=== PATIENT | female | born 1965 | race Caucasian/White ===

== ENCOUNTER 2025-08-12 12:20 | Observation (INO) ==
[2025-08-12] MEDS: DUONEB NEB ONE (13:20)
[2025-08-12 13:27] LABS: IMMATURE GRANULOCYTE # (AUTO) 0.0 (0.0-1.0); IMMATURE GRANULOCYTE % (AUTO) 0.4 % (0.0-5.0); RDW COEFFICIENT OF VARIATION 13.2 % (11.6-14.8)
[2025-08-12 13:40] LABS: MOLECULAR FLU A NEGATIVE BY NAAT (NEGATIVE); MOLECULAR FLU B NEGATIVE BY NAAT (NEGATIVE); SARS COV-2 RNA RAPID NAAT NEGATIVE (NEGATIVE)
[2025-08-12 13:41] LABS: CREATININE 0.52 mg/dL (0.60-1.30)
--- NOTE | 2025-08-12 13:45 | DI ---
EXAM: CHEST FRONTAL AND LATERAL VIEWS HISTORY: Chest pain, dyspnea, history of congestive heart failure and chronic obstructive pulmonary disease COMPARISON: 07/24/2025 IMPRESSION: Cardiomegaly atherosclerosis are again noted. No acute infiltrates are seen. No vascular congestion. There is no consolidation, visible pleural fluid or pneumothorax. Bones reveal no acute abnormality. Spinal stimulator noted in the posterior to the lower thoracic spine.
[2025-08-12] MEDS: OMNIPAQUE 350 MG/ML 100ML IVP ONE (13:58)
--- NOTE | 2025-08-12 14:53 | CT ---
EXAM: CHEST CTA WITH CONTRAST (PULMONARY ARTERY) HISTORY: Chest pain and shortness of breath. TECHNIQUE: CTA acquisition of the chest from the thoracic inlet to the upper abdomen following IV contrast administration timed to filling of the pulmonary artery. IV Contrast: 100 mL of Omnipaque 350 administered. 3D/MIP/VR images were utilized. CT Dose Reduction Techniques Employed: Yes. COMPARISON: None. FINDINGS: Pulmonary Embolism: - Diagnostic quality: Adequate. - Central (Main/Lobar/Interlobar): No embolus. - Peripheral (Segmental/Subsegmental): No embolus. - Right ventricle/Left ventricle ratio: Normal. Lines, Tubes, Devices: None. Lung Parenchyma and Airways: Central airways are patent without endobronchial lesion. No focal consolidation or interstitial disease. No suspicious pulmonary nodule. Pleural Space: No pleural effusion or thickening. No pneumothorax. Thoracic Inlet, Mediastinum, and Juliann: Thyroid gland is normal. No lymphadenopathy. Heart, Vessels, and Pericardium: The thoracic aorta is not dilated. Mild coronary and aortic calcifications. The heart chambers are mildly enlarged. There is no pericardial effusion or thickening. Bones and Soft Tissues: There is no fracture or lytic lesion. Chest wall soft tissues are unremarkable. Upper Abdomen: The visualized portions of the liver, spleen, and adrenals are normal. IMPRESSION: 1. No evidence of pulmonary embolism. 2. No acute thoracic abnormality. All CT scans are performed using dose optimization techniques as appropriate to the performed exam and include at least one of the following: Automated exposure control, adjustment of the mA and/or kV according to size, and the use of iterative reconstruction technique.
[2025-08-12] MEDS: PERCOCET 10-325 PO ONE (16:40)
[2025-08-12] MEDS: LEVAQUIN 750 MG/150 ML D5W 750 MG/150 ML BAG IV SCH (16:53)
[2025-08-12 17:26] VITALS: BMI 33.2
[2025-08-12] MEDS: DUONEB NEB SCH (18:05)
[2025-08-12] MEDS ORDERED: FLEXERIL PO PRN (18:06)
[2025-08-12] MEDS ORDERED: VENTOLIN HFA IH PRN (18:06)
[2025-08-12] MEDS ORDERED: NON-FORMULARY MEDICATION (Fluticasone-Umeclidin-Vilanter [Trelegy Ellipta] 100-62.5-25 mcg IH SCH (18:15)
[2025-08-12] MEDS: NICODERM 21 MG TD SCH (18:57)
[2025-08-12] MEDS: PROTONIX PO SCH (18:59)
[2025-08-12] MEDS: XARELTO PO SCH (18:59)
[2025-08-12] MEDS: PLAVIX PO SCH (18:59)
[2025-08-12] MEDS: ZESTRIL PO SCH (18:59)
[2025-08-12] MEDS: CYMBALTA PO SCH (19:00)
[2025-08-12] MEDS: LANTUS SUBCUT SCH (21:49)
[2025-08-12] MEDS: TRILEPTAL PO SCH (21:50)
[2025-08-12] MEDS: LYRICA PO SCH (21:50)
[2025-08-12] MEDS: K-DUR PO ONE (21:51)
[2025-08-12] MEDS: LIPITOR PO SCH (21:51)
[2025-08-12] MEDS: FLORASTOR PO SCH (21:51)
[2025-08-12] MEDS: HUMULIN R (10ML) SUBCUT ONE (21:53)
[2025-08-12] MEDS: PERCOCET 10-325 PO PRN (23:20)
[2025-08-12] MEDS: HUMULIN R (10ML) SUBCUT SCH (23:59)
--- NOTE | 2025-08-13 00:45 | ED.PDOC ---
General [facility] ED Provider: Dr. BERTO MUÑOZ MD Chief Complaint: Chest Pain Stated Complaint: Patient is a 60-year-old female who is presenting to the emergency department for chest discomfort. Patient states that for the last 3 days she has been having a heaviness over her chest that radiates to the left aspect of it. She endorses associated dyspnea and orthopnea with this as well. She notes that she is on home oxygen secondary to her COPD and has been using her home nebulizer with albuterol, however this failed to provide much improvement. She notes that she also has not been taking her Lasix given her recent toe amputation procedure she had several days ago. Also notes that she has a history of pulmonary embolism and was on prophylactic anticoagulation, however, this was also stopped her her recent surgical procedure. Denies any fevers or chills. Denies any productive cough. She does endorse some pleuritic pain as well. Time Seen by Provider: 08/12/25 12:40 Mode of Arrival: Walk-In Information Source: Patient Exam Limitations: No limitations Primary Care Provider: SLIM SNOWDEN PA-C Nursing and Triage Documentation Reviewed and Agree: Yes Opioid Naive vs. Tolerant Does Patient Take Opioids?: Yes Is Patient Opioid Naive?: No What is Opioid Naive?: *Opioid Naive implies the patient is not already taking opioids or not chronically receiving opioids on a daily basis. *PRN dosing is not "usually" associated with tolerance. *Patients are at higher risk of over-sedation and aspiration. What is Opioid Tolerant?: *Opioid Tolerance implies less than the expected response to an opioid. *Acquired tolerance is defined by the patient taking 60mg of oral morphine daily (or equianalgesic dose of another opioid) for 1 week or more. *Often associated with chronic pain. *May take more than usual dose to achieve desired pain control. 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 - Spondylosis, unspecified (ICD-10) Legally blind H54.8 - Legal blindness, as defined in [place] (ICD-10) Family History Other No known health problems Social History (Updated 08/12/25 @ 18:47 by SABINO BERG RN) Smoking and tobacco status: Current every day smoker Tobacco type: cigarettes Tobacco: How many years used: 40 Quit status: not considering quitting Alcohol intake: never Substance use type: does not use Special terrell needs: No Adopted: Yes Financial difficulty paying for basics: not very hard Seatbelt use: always Surgical History [place] teeth extracted K08.409 - Partial loss of teeth, unspecified cause, unspecified class (ICD- 10) History of cholecystectomy Z90.49 - Acquired absence of other specified parts of digestive tract (ICD- 10) History of appendectomy Z90.49 - Acquired absence of other specified parts of digestive tract (ICD- 10) H/O: hysterectomy Z90.710 - Acquired absence of both cervix and uterus (ICD-10) H/O colonoscopy Z98.890 - Other specified postprocedural states (ICD-10) History of lumbar surgery Z98.890 - Other specified postprocedural states (ICD-10) Status post trigger finger release Z98.890 - Other specified postprocedural states (ICD-10) Status post insertion of spinal cord stimulator Z96.89 - Presence of other specified functional implants (ICD-10) History of cardiac catheterization Z98.890 - Other specified postprocedural states (ICD-10) History of bunionectomy Z98.890 - Other specified postprocedural states (ICD-10) Toe amputee Z89.429 - Acquired absence of other toe(s), unspecified side (ICD-10) Spinal cord stimulator status Z96.89 - Presence of other specified functional implants (ICD-10) Amputation of toe of left foot left second toe on 03/15/[address] Santamaria S98.132A - Complete traumatic amputation of one left lesser toe, initial encounter (ICD-10) Female Reproductive History Menstrual Hx Hysterectomy: Yes Hx Tubal Ligation: No Physical Exam Physical Exam Appearance: Reports No pain distress Ill-appearing: None Pain Distress: None Eyes: Reports JAKE, EOMI and Conjunctiva clear Neck: Supple Respiratory: Reports Airway patent, Breath sounds equal, Wheezes and Other (No increased work of breathing.); Denies Crackles or Rhonchi Cardiovascular: Reports RRR and Pulses normal (2+ radial and DP pulses bilaterally.) GI/: Reports Soft and Nontender Musculoskeletal: Reports Normal strength Skin: Reports Warm, Dry and Other (Inspection of the postoperative site of the right foot where she had her 1st and 2nd digits recently amputated 2 days ago shows sutures intact with no findings concerning for infectious complication.) Neurological: Reports Sensation intact Interpretation EKG Interpretation EKG Interpretation By: ED Physician Time of EKG #1: 12:37 Rate: Normal Rhythm: Sinus Ectopy: PVCs [place]: NL ST Segment: Normal Interpretation: Sinus rhythm with FIs concerning for ACS or right heart strain. Radiology Interpretation Radiology Interpretation By: ED Physician Radiology Results: Negative Exam Interpreted: CXR Xray Comments: Negative for any focal consolidation. Physician Progress Note Physician Progress Note: Patient is a 60-year-old female is presenting to the emergency department for chest discomfort as well as dyspnea of 3-day duration. Differential diagnosis initially with COPD exacerbation versus heart failure exacerbation versus CT versus pulmonary embolism versus pneumonia. We did initiate workup with chest plain film imaging that was interpreted by me as not showing any evidence of an acute cardiopulmonary issue such as pneumonia, pneumothorax, or pulmonary edema. I did escalate imaging to CT PE study given that the patient did have an elevated D-dimer as well as multiple risk factors for developing pulmonary embolism including recent surgery as well as not taking her anticoagulation recently due to said surgery. This imaging was interpreted by the radiologist as showing no findings that would be concerning for pulmonary embolism. CBC did not have a leukocytosis that would indicate underlying infection. Also no signs of anemia that would explain her dyspnea. No significant electrolyte abnormalities aside from a very mild hypokalemia. The brain natruretic peptide was elevated at 2300, however, is unclear if this is insurance account representative of any true heart failure exacerbation as her levels in the past have been 3000. Given her orthopnea I do believe it is possible that the patient is having mild heart failure exacerbation currently. Should be noted the patient's troponin was well within normal limits and given that her symptoms began 3 days ago a repeat was not indicated. ECG also did not have any findings to be concerning for ACS. Into this there was no concern for myocardial infarction at this time. Patient did receive a nebulized breathing treatment and reports some improvement of her symptoms. Given her significant wheezing on examination is certainly possible that her dyspnea and chest discomfort is secondary to a COPD exacerbation. I did refrain from initiating treatment with steroids given that she had a recent operation of the lower extremities and is diabetic. I felt that the steroids would increase her risk of infection. Patient was admitted to the medical floor for treatment of COPD exacerbation and possible heart failure exacerbation. Of note, the postsurgical site of the right foot appear to be healing well and did not have any findings of be concerning for a infectious complication. Course Course 08/12/25 13:19 08/12/25 13:19 Orders, Labs, Meds: Lab Review 08/12/25 08/12/25 13:19 13:23 WBC 9.96 RBC 4.75 Hgb 13.7 Hct 42.6 MCV 89.7 MCH 28.8 MCHC 32.2 RDW Coeff of Christelle 13.2 Plt Count 204 Immature Gran % (Auto) 0.4 Neut % (Auto) 61.0 Lymph % (Auto) 31.9 Elbert % (Auto) 5.4 Eos % (Auto) 1.1 Baso % (Auto) 0.2 Neut # (Auto) 6.1 Lymph # (Auto) 3.2 Elbert # (Auto) 0.5 Eos # (Auto) 0.1 Baso # (Auto) 0.0 Immature Gran # (Auto) 0.0 Sodium 136.0 Potassium 3.15 L Chloride 99.7 Carbon Dioxide 32.1 H Anion Gap 7.35 BUN 12.6 Creatinine 0.52 L Estimated GFR (MDRD) 120.00 BUN/Creatinine Ratio 24.23 Glucose 288.1 H Calcium 9.13 Total Bilirubin 0.53 AST 21.8 ALT 16.0 Alkaline Phosphatase 120.5 Troponin I < 0.012 NT-Pro-B Natriuret Pep 2330 H Total Protein 7.02 Albumin 4.17 Globulin 2.85 Albumin/Globulin Ratio 1.46 D-Dimer 929.42 H Influ A Molecular Assay Negative by naat Influ B Molecular Assay Negative by naat SARS CoV-2 RNA Rapid CEASAR Negative Orders Category Date Time Status PLACE PATIENT OBSERVATION .TO [facility] (MONITORED BED ADMISSION 08/12/25 15:37 Active ) EKG-(ED & IP/OBS ONLY) Stat CARDIO 08/12/25 15:16 Completed NEBULIZER TREATMENT Routine CARDIO 08/12/25 15:55 Active INTAKE & OUTPUT Q8HR CARE 08/12/25 15:37 Active IP: INSERT SALINE LOCK ONCE CARE 08/12/25 15:37 Active NPO REMINDER: IMAGING ONCE CARE 08/12/25 13:41 Completed TELEMETRY MONITORING TELE CARE 08/12/25 15:37 Active VITAL SIGNS Q8HR CARE 08/12/25 15:37 Active ED APPLY O2 .ONCE EMERGENCY 08/12/25 13:00 Active ED MOVIE STAR APPLIED .ONCE EMERGENCY 08/12/25 13:00 Active CBC W/ AUTO DIFF Stat LAB 08/12/25 13:19 Completed COMPREHENSIVE METABOLIC PANEL Stat LAB 08/12/25 13:19 Completed D-DIMER Stat LAB 08/12/25 13:19 Completed FLU A/B MOLECULAR Stat LAB 08/12/25 13:23 Completed NT-PROBNP(ED) Stat LAB 08/12/25 13:19 Completed SARS COV-2 RNA RAPID CEASAR Stat LAB 08/12/25 13:23 Completed SPUTUM CULTURE Routine LAB 08/12/25 15:55 Received TROPONIN I Stat LAB 08/12/25 13:19 Completed Iohexol [Omnipaque 350 mg/ml 100Ml] Meds 08/12/25 13:57 Discontinued 100 ml IVP ONCE ONE Ipratropium/Albuterol Neb [Duoneb] Meds 08/12/25 13:00 Discontinued 3 ml NEB ONCE ONE Ipratropium/Albuterol Neb [Duoneb] Meds 08/12/25 18:00 Active 3 ml NEB RTQ4H Levofloxacin/D5w [Levaquin 750 mg/150 ml D5w] Meds 08/12/25 17:00 Active 750 mg in 150 ml IV DAILY Saccharomyces Boulardii [Florastor] Meds 08/12/25 21:00 Active 250 mg PO BID RESUSCITATION STATUS Routine OTHERS 08/12/25 15:37 Ordered CHEST, 2 VIEWS PA & LAT Stat RADS 08/12/25 13:00 Completed CTA CHEST PE PROTOCOL Stat RADS 08/12/25 13:40 Completed Medications Generic Name Dose Route Start Last Admin Trade Name Freq PRN Reason Stop Dose Admin Albuterol Sulfate 2 puff 08/12/25 18:06 Albuterol Sulfate 8 Gm Inhaler IH Q4-6H PRN Wheezing Albuterol/Ipratropium 3 ml 08/12/25 18:00 08/12/25 21:00 Ipratropium/Albuterol Vial.Neb NEB 3 ml RTQ4H REGULO Administration Atorvastatin Calcium 80 mg 08/12/25 21:00 08/12/25 21:51 Atorvastatin Calcium 20 Mg Tablet PO 80 mg BEDTIME REGULO Administration Budesonide/Formoterol Fumarate 2 puff 08/13/25 09:00 Budesonide/Formoterol Fumarate 160/4.5 Mcg Inhaler IH BID REGULO Clopidogrel Bisulfate 75 mg 08/12/25 18:30 08/12/25 18:59 Clopidogrel Bisulfate 75 Mg Tablet PO 75 mg DAILY REGULO Administration Cyclobenzaprine HCl 5 mg 08/12/25 18:06 Cyclobenzaprine Hcl 10 Mg Tablet PO BID PRN Spasms Duloxetine HCl 60 mg 08/12/25 18:30 08/12/25 19:00 Duloxetine Hcl 30 Mg Capsule. PO 60 mg DAILY REGULO Administration Furosemide 20 mg 08/13/25 09:00 Furosemide 20 Mg Tablet PO DAILY REGULO Levofloxacin/Dextrose 750 mg in 150 mls @ 100 mls/hr 08/12/25 17:00 08/12/25 16:53 Levaquin 750 Mg/150 Ml D5w IV 08/15/25 16:59 100 mls/hr DAILY REGULO Administration Insulin Glargine 30 unit 08/12/25 21:00 08/12/25 21:49 Insulin Glargine,Hum.Rec.Anlog 100 Units/Ml SUBCUT 30 unit BEDTIME REGULO Administration Insulin Human Regular 10 unit 08/13/25 07:30 Insulin Regular, Human 100 Unit/Ml (10ml) Vial SUBCUT TIDWM2 REGULO Lisinopril 10 mg 08/12/25 18:30 08/12/25 18:59 Lisinopril 10 Mg Tablet PO 10 mg DAILY REGULO Administration Nicotine 1 patch 08/12/25 18:20 08/12/25 18:57 Nicotine 21 Mg Patch.Td24 TD 1 patch DAILY REGULO Administration Oxcarbazepine 300 mg 08/12/25 21:00 08/12/25 21:50 Oxcarbazepine 150 Mg Tablet PO 300 mg BID REGULO Administration Oxycodone/Acetaminophen 1 tab 08/12/25 18:06 08/12/25 23:20 Oxycodone/Acetaminophen 10/325 Mg Tablet PO 1 tab Q6H PRN Administration Pain Pantoprazole Sodium 40 mg 08/12/25 18:30 08/12/25 18:59 Pantoprazole Sodium 40 Mg Tablet. PO 40 mg DAILY REGULO Administration Pregabalin 150 mg 08/12/25 21:00 08/12/25 21:50 Pregabalin 75 Mg Capsule PO 150 mg TID REGULO Administration Rivaroxaban 20 mg 08/12/25 18:10 08/12/25 18:59 Rivaroxaban 10 Mg Tablet PO 20 mg QPM REGULO Administration Saccharomyces Boulardii 250 mg 08/12/25 21:00 08/12/25 21:51 Saccharomyces Boulardii 250 Mg Capsule PO 250 mg BID REGULO Administration Tiotropium [place] 1 cap 08/13/25 09:00 Tiotropium [place] 18 Mcg Cap.W.Dev IH DAILY REGULO Discontinued Medications Generic Name Dose Route Start Last Admin Trade Name Freq PRN Reason Stop Dose Admin Albuterol/Ipratropium 3 ml 08/12/25 13:00 08/12/25 13:20 Ipratropium/Albuterol Vial.Neb NEB 08/12/25 13:01 3 ml ONCE ONE Administration Insulin Human Regular 10 unit 08/12/25 21:00 08/12/25 23:59 Insulin Regular, Human 100 Unit/Ml (10ml) Vial SUBCUT Not Given TID REGULO Insulin Human Regular 5 unit 08/12/25 21:37 08/12/25 21:53 Insulin Regular, Human 100 Unit/Ml (10ml) Vial SUBCUT 08/12/25 21:38 5 unit ONCE ONE Administration Iohexol 100 ml 08/12/25 13:57 08/12/25 13:58 Iohexol 350 Mg/Ml 100ml IVP 08/12/25 13:58 100 ml ONCE ONE Administration Non-Formulary Medication 1 inh 08/12/25 18:15 [id number] [Trelegy Ellipta] QDAY REGULO Oxycodone/Acetaminophen 1 tab 08/12/25 16:34 08/12/25 16:40 Oxycodone/Acetaminophen 10/325 Mg Tablet PO 08/12/25 16:35 1 tab ONCE ONE Administration Potassium Chloride 40 meq 08/12/25 20:47 08/12/25 21:51 Potassium Chloride 20 Meq Tab PO 08/12/25 20:48 40 meq ONCE ONE Administration Vital Signs: Temp Pulse Resp BP Pulse Ox 08/12/25 12:34 98.1 F 62 16 194/92 H 98 Discharge Plan Discharge Patient Disposition: PLACED OBSERVATION Did you review [place] for ALL controlled substances?: Not Applicable ED Provider: BERTO MUÑOZ
[2025-08-13] MEDS: PROTONIX PO SCH (07:46)
[2025-08-13] MEDS: HUMULIN R (10ML) SUBCUT SCH (07:47)
[2025-08-13] MEDS: SYMBICORT 160-4.5 MCG INHALER IH SCH (07:59)
[2025-08-13] MEDS: SPIRIVA IH SCH (07:59)
[2025-08-13] MEDS: LASIX TAB PO SCH (08:01)
[2025-08-13 08:51] LABS: IMMATURE GRANULOCYTE # (AUTO) 0.0 (0.0-1.0); IMMATURE GRANULOCYTE % (AUTO) 0.3 % (0.0-5.0); RDW COEFFICIENT OF VARIATION 13.1 % (11.6-14.8)
[2025-08-13 09:04] LABS: CREATININE 0.54 mg/dL (0.60-1.30)
[2025-08-13] MEDS: ZYVOX PO SCH (09:10)
[2025-08-13 09:54] VITALS: BP 155/81; PULSE 66; RESP 22; TEMP 96.9
--- NOTE | 2025-08-13 10:24 | PCM.SS ---
Provider Provider: SOFIE LAST PA-C, [facility] Admission Date Admission Date: 08/12/25 Discharge Date Discharge Date: 08/13/25 Primary Care Physician Primary Care Physician: NIMISHA GARCIA PA-C Chief Complaint Reason For Visit: COPD EXACERBATION, WEAKNESS,CHF EXACERBATION History of Present Illness History of Present Illness: Admitted 08/12/25 16:20, this 60 year old /WHITE/F who presented to ER with worsening SOB and chest discomfort. Patient has underlying COPD and CHF. She had a recent procedure this past week requiring amputation of digits on her right foot for which she was prescribed linezolid, and she states she is taking it. She has felt more SOB. She was worried she may have pneumonia. She also had to stop her blood thinner prior to surgery, but she has resumed it. She states she has hx of PEs in the past. She had a CXR and CTA, negative for acute findings. Was admitted to med surg for COPD exacerbation. Patient wears 3L chronically at this time, and is on 3L. She states her breathing feels much better today. Trops negative. Potassium and mag low and replaced. She states her pcp instructed her to take lasix prn based on her weight but she hadn't been taking it recently due to her surgery. She feels at her baseline and is requesting discharge. We discussed typical treatment of COPD exacerbation include abx and steroids, however given her recent surgery and chronically uncontrolled sugars, would recommend against steroids at this time. Her breathing is baseline, her oxygen requirement is also baseline. Will also avoid additional abx as she is on linezolid for her foot. She appears euvolemic, weights at baseline compared to last visits, bnp actually improved from last admission. No sign of overload on imaging. Will treat conservatively with breathing treatments and incentive spirometer. Discussed close f/u with pcp. She feels she can perform her ADLs at home. She is agreeable to this plan. 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 - Spondylosis, unspecified (ICD-10) Legally blind H54.8 - Legal blindness, as defined in [place] (ICD-10) Surgical History [place] teeth extracted K08.409 - Partial loss of teeth, unspecified cause, unspecified class (ICD- 10) History of cholecystectomy Z90.49 - Acquired absence of other specified parts of digestive tract (ICD- 10) History of appendectomy Z90.49 - Acquired absence of other specified parts of digestive tract (ICD- 10) H/O: hysterectomy Z90.710 - Acquired absence of both cervix and uterus (ICD-10) H/O colonoscopy Z98.890 - Other specified postprocedural states (ICD-10) History of lumbar surgery Z98.890 - Other specified postprocedural states (ICD-10) Status post trigger finger release Z98.890 - Other specified postprocedural states (ICD-10) Status post insertion of spinal cord stimulator Z96.89 - Presence of other specified functional implants (ICD-10) History of cardiac catheterization Z98.890 - Other specified postprocedural states (ICD-10) History of bunionectomy Z98.890 - Other specified postprocedural states (ICD-10) Toe amputee Z89.429 - Acquired absence of other toe(s), unspecified side (ICD-10) Spinal cord stimulator status Z96.89 - Presence of other specified functional implants (ICD-10) Amputation of toe of left foot left second toe on 03/15/[address] Santamaria S98.132A - Complete traumatic amputation of one left lesser toe, initial encounter (ICD-10) Family History Other No known health problems Social History Smoking and tobacco status: Current every day smoker Tobacco type: cigarettes Tobacco: How many years used: 40 Quit status: not considering quitting Alcohol intake: never Substance use type: does not use Special terrell needs: No Adopted: Yes Financial difficulty paying for basics: not very hard Seatbelt use: always Medications Mecications: Medications at Discharge (Home Meds & RX) nitroglycerin 0.4 mg sublingual tablet 0.4 mg sublingual Q5-15M PRN chest pain 02/14/25 oxcarbazepine 300 mg tablet 300 mg PO BID 02/14/25 fluticasone fur. 100 mcg-umeclid 62.5 mcg-vilant 25 mcg inhalat.powder (Trelegy Ellipta) 1 inh inhalation QDAY #60 ea 03/22/25 lisinopril 10 mg tablet 10 mg PO QDAY #90 tabs 03/22/25 naloxone 4 mg/actuation nasal spray (Narcan) 1 spray intranasal Q2-3M PRN opioid overdose #2 ea 03/22/25 dextrose 40 % oral gel (Glutose-15) 10 g PO Q15M PRN hypoglycemia #112.5 grams 05/21/25 flash glucose scanning reader (CXOWAREStyle Kirk 2 Mellette) #1 ea 05/21/25 flash glucose sensor (FreeStyle Kirk 2 Sensor kit) #1 ea 05/21/25 pen needle, diabetic 33 gauge x 1/4" #100 ea 05/25/25 pregabalin 150 mg capsule (Lyrica) 150 mg PO TID #90 caps 05/30/25 insulin syringe-needle U-100 1 mL 31 gauge x 5/16" (KCAP Servicesuch Insulin Syringe) #100 ea 05/31/25 blood-glucose sensor (Dexcom G7 Sensor device) #1 ea 06/27/25 blood-glucose,steel pourer,cont (Dexcom G7 Pl Sql Developer) #1 ea 06/27/25 clopidogrel 75 mg tablet (Plavix) 75 mg PO QDAY #90 tabs 07/27/25 furosemide 20 mg tablet (Lasix) 20 mg PO DAILY #30 tabs 07/27/25 insulin glargine 100 unit/mL (3 mL) subcutaneous pen (Lantus Solostar U-100 Insulin) 30 unit (0.3 mL) subcut BEDTIME #15 mL 07/27/25 insulin regular human 100 unit/mL injection solution (Novolin R Regular U-100 Insulin) 10 unit (0.1 mL) subcut TID #10 mL 07/27/25 prednisone 5 mg tablet 5 mg PO DAILY #4 tabs 07/27/25 oxycodone-acetaminophen 10 mg-325 mg tablet (Percocet) 1 tab PO Q6H PRN pain #120 tabs 07/30/25 duloxetine 60 mg capsule,delayed release (Cymbalta) 60 mg PO QDAY #90 caps 08/01/25 albuterol sulfate 90 mcg/actuation aerosol inhaler 2 puff inhalation Q4-6H PRN shortness of breath or wheezing #8.5 grams 08/02/25 atorvastatin 80 mg tablet 80 mg PO BEDTIME #30 tabs 08/02/25 cyclobenzaprine 5 mg tablet 5 mg PO BID PRN muscle spasm #60 tabs 08/02/25 pantoprazole 40 mg tablet,delayed release 40 mg PO QDAY #30 tabs 08/02/25 rivaroxaban 20 mg tablet (Xarelto) 20 mg PO QPM #90 tabs 08/02/25 tirzepatide 5 mg/0.5 mL subcutaneous pen injector 5 mg (0.5 mL) subcut QWEEK #2 mL 08/02/25 linezolid 600 mg tablet 600 mg PO 2XD 08/12/25 Allergies Allergies Allergy/AdvReac Type Severity Reaction Status Date / Time metformin AdvReac Vomiting Verified 08/12/25 12:33 Review of Systems Constitutional: Denies Fever Head: Reports Normocephalic and Atraumatic Cardiovascular: Reports Chest pain (resolved ); Denies Edema Respiratory: Reports Cough and Shortness of air Gastrointestinal: Denies Nausea, Vomiting, Diarrhea, Abdominal pain or Melena Genitourinary: Denies Dysuria or Frequency Physical Examination Appearance: Positive No Apparent Distress and Alert and Oriented x3 Head: Positive Normocephalic and Atraumatic Neck: Positive Supple and Trachea Midline Heart: Positive RRR Respiratory: Positive Breath Sounds Diminished and Respirations Nonlabored; Negative Crackles, Rhonchi or Wheezes GI/: Positive Soft, Nontender, Bowel sounds normal and No Distention Neurological: Positive Cranial nerves intact, Alert and Oriented Psychiatric: Positive Normal Judgement, Normal Insight, Affect Appropriate and Mood Appropriate Additional Findings: right foot in dressing, c/d/i, pictures reviewed in chart - sutures appear to be intact, no drainage noted Vital Signs (Last 4 Hours) Vital Signs Last 4 Hours: Vital Signs: Last 4 Hours 08/13/25 07:00 08/13/25 07:54 08/13/25 08:36 Temperature Temperature Source Pulse Rate Respiratory Rate Blood Pressure Blood Pressure Mean Blood Pressure Location Blood Pressure Position O2 Sat by Pulse Oximetry Oxygen Delivery Method Nasal Cannula Nasal Cannula Nasal Cannula Oxygen Flow Rate Height Weight 09/29/25 09:36 08/13/25 09:53 08/13/25 09:53 Temperature 96.9 F L Temperature Source Temporal Artery Scan Pulse Rate 66 Respiratory Rate 22 H Blood Pressure 155/81 H Blood Pressure Mean 105 Blood Pressure Location Left Arm Blood Pressure Position Supine O2 Sat by Pulse Oximetry 96 Oxygen Delivery Method Nasal Cannula Nasal Cannula Oxygen Flow Rate 3 Height 5 ft 1 in Weight 79.8 kg Labs This Visit Labs This Visit: Labs This Visit 08/12/25 08/12/25 08/13/25 13:19 13:23 08:47 WBC 9.96 7.30 RBC 4.75 4.40 Hgb 13.7 12.8 Hct 42.6 39.5 MCV 89.7 89.8 MCH 28.8 29.1 MCHC 32.2 32.4 RDW Coeff of Christelle 13.2 13.1 Plt Count 204 177 Immature Gran % (Auto) 0.4 0.3 Neut % (Auto) 61.0 51.8 Lymph % (Auto) 31.9 40.5 [place] % (Auto) 5.4 5.8 Eos % (Auto) 1.1 1.5 Baso % (Auto) 0.2 0.1 Neut # (Auto) 6.1 3.8 Lymph # (Auto) 3.2 3.0 [place] # (Auto) 0.5 0.4 Eos # (Auto) 0.1 0.1 Baso # (Auto) 0.0 0.0 Immature Gran # (Auto) 0.0 0.0 Sodium 136.0 138.1 Potassium 3.15 L 3.16 L Chloride 99.7 100.4 Carbon Dioxide 32.1 H 35.4 H Anion Gap 7.35 5.46 BUN 12.6 12.2 Creatinine 0.52 L 0.54 L Estimated GFR (MDRD) 120.00 115.00 BUN/Creatinine Ratio 24.23 22.59 Glucose 288.1 H 147.3 H D Calcium 9.13 8.74 Magnesium 1.56 L Total Bilirubin 0.53 0.66 AST 21.8 23.2 ALT 16.0 14.5 Alkaline Phosphatase 120.5 74.5 D Troponin I < 0.012 < 0.012 NT-Pro-B Natriuret Pep 2330 H Total Protein 7.02 6.09 L Albumin 4.17 3.63 Globulin 2.85 2.46 Albumin/Globulin Ratio 1.46 1.47 D-Dimer 929.42 H Influ A Molecular Assay Negative by naat Influ B Molecular Assay Negative by naat SARS CoV-2 RNA Rapid CEASAR Negative Microbiology This Visit 08/12/25 19:00 Sputum - Expectorated Sputum Sputum Culture - Preliminary Imaging Imaging: EXAM: CHEST CTA WITH CONTRAST (PULMONARY ARTERY) HISTORY: Chest pain and shortness of breath. TECHNIQUE: CTA acquisition of the chest from the thoracic inlet to the upper abdomen following IV contrast administration timed to filling of the pulmonary artery. IV Contrast: 100 mL of Omnipaque 350 administered. 3D/MIP/VR images were uti lized. CT Dose Reduction Techniques Employed: Yes. COMPARISON: None. FINDINGS: Pulmonary Embolism: - Diagnostic quality: Adequate. - Central (Main/Lobar/Interlobar): No embolus. - Peripheral (Segmental/Subsegmental): No embolus. - Right ventricle/Left ventricle ratio: Normal. Lines, Tubes, Devices: None. Lung Parenchyma and Airways: Central airways are patent without endobronchial lesion. No focal consolidation or interstitial disease. No suspicious pulmonary nodule. Pleural Space: No pleural effusion or thickening. No pneumothorax. Thoracic Inlet, Mediastinum, and [place]: Thyroid gland is normal. No lymphadenopathy. Heart, Vessels, and Pericardium: The thoracic aorta is not dilated. Mild coronary and aortic calcifications. The heart chambers are mildly enlarged. There is no pericardial effusion or thickening. Bones and Soft Tissues: There is no fracture or lytic lesion. Chest wall soft tissues are unremarkable. Upper Abdomen: The visualized portions of the liver, spleen, and adrenals are normal. IMPRESSION: 1. No evidence of pulmonary embolism. 2. No acute thoracic abnormality. EXAM: CHEST FRONTAL AND LATERAL VIEWS HISTORY: Chest pain, dyspnea, history of congestive heart failure and chronic obstructive pulmonary disease COMPARISON: 07/24/2025 IMPRESSION: Cardiomegaly atherosclerosis are again noted. No acute infiltrates are seen. No vascular congestion. There is no consolidation, visible pleural fluid or pneumothorax. Bones reveal no acute abnormality. Spinal stimulator noted in the posterior to the lower thoracic spine. Review Review Statement: I have independently reviewed and interpreted the labs/EKGs/imaging that were ordered by the ER provider. I have reviewed all outside records that are available currently in our EMR including imaging/notes/labs from previous visits. Plan Reccomendations/Plan: 1. Acute COPD exacerbation, mild - High risk of readmission. Cont abx, duonebs, incentive spirometer, avoiding steroids in light of recent surgery 2. Hypokalemia - replace 3. Hypomagnesemia - give 2 gm mag rider 4. DMT2 - cont insulin, diabetic diet, tight glucose control 5. Hyperlipidemia - Cont home meds 6. Hx of PEs - Cont home meds 7. GERD - Cont home meds Patient wears 3L chronically at this time, and is on 3L. She states her breathing feels much better today. Trops negative. Potassium and mag low and replaced. She states her pcp instructed her to take lasix prn based on her we ight but she hadn't been taking it recently due to her surgery. She feels at her baseline and is requesting discharge. We discussed typical treatment of COPD exacerbation include abx and steroids, however given her recent surgery and chronically uncontrolled sugars, would recommend against steroids at this time. Her breathing is baseline, her oxygen requirement is also baseline. Will also avoid additional abx as she is on linezolid for her foot. She appears euvolemic, weights at baseline compared to last visits, bnp actually improved from last admission. No sign of overload on imaging. Will treat conservatively with breathing treatments and incentive spirometer. Discussed close f/u with pcp. She feels she can perform her ADLs at home. She is agreeable to this plan. Discharge Diagnoses: 1. Acute COPD exacerbation, mild 2. Hypokalemia - replaced 3. Hypomagnesemia - replaced 4. DMT2 5. Hyperlipidemia 6. Hx of PEs 7. GERD Additional Planning: Case discussed with ED Physician, Dr. Tan. DVT Prophylaxis: Xarelto Advanced Care Plannin minutes spent discussing advance care planning. Admit to : Obs Discussed Plan of Care with Dr. Adolph Mclaughlin. Review With Patient Reviewed with Patient and Family: Patient and family have been counseled on condition and care plan and have no immediate questions. I have personally discussed and reviewed the patient's visit/current labs/imaging/decision making with Dr. Adolph Mclaughlin, my supervising attending. Total number of minutes spent with patient [85] min. More than 50% of the time spent with this patient was devoted to counseling and coordination of care. Time of Admission:08/12/25 16:20 Time of Discharge: 08/13/25 1030 Discharge Plan Discharge Discharge Orders: Discharge Patient (ONCE); Ordered 08/13/25 Ordered By: SOFIE LAST Activity Restrictions/Additional Instructions: DISCHARGE TO HOME Dx: COPD EXACERBATION USE INCENTIVE SPIROMETER F/U WITH PCP CONTINUE LINEZOLID PRESCRIBED USE BREATHING TREATMENTS NEEDED Patient Disposition: HOME SELF-CARE Prescriptions: Continued pregabalin [Lyrica] 150 mg capsule 150 mg PO TID Qty: 90 0RF clopidogrel [Plavix] 75 mg tablet 75 mg PO QDAY Qty: 90 0RF oxycodone-acetaminophen [Percocet] 10-325 mg tablet 1 tab PO Q6H PRN (Reason: pain) Qty: 120 0RF duloxetine [Cymbalta] 60 mg capsule,delayed release(DR/EC) 60 mg PO QDAY Qty: 90 0RF Xarelto 20 mg tablet 20 mg PO QPM Qty: 90 0RF Rx Instructions: must administer with evening meal atorvastatin 80 mg tablet 80 mg PO BEDTIME Qty: 30 0RF furosemide [Lasix] 20 mg tablet 20 mg PO DAILY Qty: 30 0RF Novolin R Regular U100 Insulin 100 unit/mL solution 10 unit subcut TID Qty: 10 0RF insulin glargine [Lantus Solostar U-100 Insulin] 100 unit/mL (3 mL) insulin pen 30 unit subcut BEDTIME Qty: 15 0RF linezolid 600 mg tablet 600 mg PO 2XD oxcarbazepine 300 mg tablet 300 mg PO BID nitroglycerin 0.4 mg tablet, sublingual 0.4 mg sublingual Q5-15M PRN (Reason: chest pain) Rx Instructions: do not exceed 3 doses per episode Trelegy Ellipta 100-62.5-25 mcg blister with device 1 inh inhalation QDAY Qty: 60 11RF lisinopril 10 mg tablet 10 mg PO QDAY Qty: 90 3RF naloxone [Narcan] 4 mg/actuation spray,non-aerosol 1 spray intranasal Q2-3M PRN (Reason: opioid overdose) Qty: 2 0RF Rx Instructions: spray 1 dose into ONE nostril; alternate nostrils w each dose until help arrives tirzepatide 5 mg/0.5 mL pen injector 5 mg subcut QWEEK Qty: 2 0RF albuterol sulfate 90 mcg/actuation HFA aerosol inhaler 2 puff inhalation Q4-6H PRN (Reason: shortness of breath or wheezing) Qty: 8.5 0RF cyclobenzaprine 5 mg tablet 5 mg PO BID PRN (Reason: muscle spasm) Qty: 60 0RF pantoprazole 40 mg tablet,delayed release (DR/EC) 40 mg PO QDAY Qty: 30 0RF dextrose [Glutose-15] 40 % gel 10 g PO Q15M PRN (Reason: hypoglycemia) Qty: 112.5 0RF Rx Instructions: until symptoms of low blood sugar are controlled No Action (DME) pen needle, diabetic 33 gauge x 1/4" needle See Rx Instructions .ROUTE Qty: 100 0RF Rx Instructions: As directed (DME) insulin syringe-needle U-100 [CareTouch Insulin Syringe] 1 mL 31 gauge x 5/16 syringe See Rx Instructions .ROUTE Qty: 100 0RF Rx Instructions: As directed (DME) Dexcom G7 Sensor Device See Rx Instructions .ROUTE .MEDSUPPLY Qty: 1 0RF Rx Instructions: As directed (DME) Dexcom G7 Pl Sql Developer Misc See Rx Instructions .ROUTE Qty: 1 0RF Rx Instructions: As directed prednisone 5 mg tablet 5 mg PO DAILY Qty: 4 0RF (DME) FreeStyle Kirk 2 Sensor Kit See Rx Instructions .ROUTE Qty: 1 5RF Rx Instructions: As directed (DME) FreeStyle Kirk 2 Mellette Misc See Rx Instructions .ROUTE Qty: 1 5RF Rx Instructions: As directed Did you review [place] [facility] for ALL controlled substances?: Not Applicable Discussed opioids are addictive and Narcan is available by prescription or from pharmacy.: No Condition: Stable Referrals: ALEXANDRO GRIFFIN MD [STAFF PHYSICIAN, Family Practice] - 08/15/25 11:00 am Referral Note: Nimisha Garcia, your typical provider, does not have any available apts this week, Dr. Griffin works in the same clinic, [address], and will see you for your hospital follow up.
[2025-08-13] MEDS: K-DUR PO ONE (10:33)
[2025-08-13] MEDS: MAGNESIUM SULF 2 G/50 ML BAG 2 GM/50 ML PIGGYBACK IV ONE (10:34)
== END 2025-08-13 12:55 | disposition home or self-care (01) ==
LOC: ED 12:20 → MEDSURG B 12:20
PROVIDERS: ADMIT Hospitalist; ATTEND Physician Assistant
DX: E78.5 Hyperlipidemia, unspecified; Z98.890 Other specified postprocedural states; K21.9 Gastro-esophageal reflux disease without esophagitis; Z86.711 Personal history of pulmonary embolism; J44.1 Chronic obstructive pulmonary disease with (acute) exacerbation; Z99.81 Dependence on supplemental oxygen; Z20.822 Contact with and (suspected) exposure to COVID-19; E11.9 Type 2 diabetes mellitus without complications; Z51.81 Encounter for therapeutic drug level monitoring; E87.6 Hypokalemia; Z79.899 Other long term (current) drug therapy; M62.81 Muscle weakness (generalized); E83.42 Hypomagnesemia; Z79.4 Long term (current) use of insulin